=== PATIENT | female | born 1960 | race Caucasian/White ===

== ENCOUNTER 2020-11-01 12:05 | Emergency (ER) | payer SELFPAY ==
[~2020-11-01] VITALS: Ht 152.4 cm; Wt 55.0 kg
[2020-11-01 12:08] VITALS: BP 155/85
[2020-11-01] MEDS ORDERED: DIPH25CA83 MT (12:35)
[2020-11-01] MEDS ORDERED: NYST15OI TP (12:35)
[2020-11-01] MEDS ORDERED: HYDR453.3 TP (12:35)
== END 2020-11-01 12:44 | disposition home or self-care (01) ==
LOC: ER 12:05
DX: R21 Rash and other nonspecific skin eruption (principal)
CPT/HCPCS: 82962; 99281